=== PATIENT | female | born 1945 | race Caucasian/White ===

== ENCOUNTER → 2022-07-14 10:33 | Outpatient (CLI) | payer MEDICARE, OTHER, SELFPAY ==
--- NOTE | 2022-07-15 01:50 | DI.NM.S_ITS ---
DATE OF SERVICE: 07/14/2022 PROCEDURE: Pharmacological perfusion study. INDICATIONS: Patient has extensive ST-elevation anterior wall OH in March,. Significant LAD disease which was not intervened as patient already completed infarction. 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 Perfusion study was scheduled to see any ischemia in the circumflex and OM territory. RADIOPHARMACEUTICAL: 25.7 millicurie technetium-99m Myoview IV was injected at stress and 12.8 millicurie technetium-99m Myoview IV was injected at rest. CARDIAC STRESS: The patient underwent IV Lexiscan perfusion study under the supervision of an attending staff using standard intravenous Lexiscan as per protocol. Baseline rhythm sinus with QS complexes in V1 to V3 and up to [address]- elevation in anterior leads. Those changes were seen in the EKG of March, as well. During Lexiscan, there was slight and more pronounced ST elevation. No significant arrhythmias. The patient had slight shortness of breath and flushing. No chest pain. Resting blood pressure 138/72. Remained hemodynamically stable. RAW DATA: There is increased subdiaphragmatic activity. GATED STUDY: Resting LV ejection fraction 32% with hypokinetic mid to distal anterior wall. Cannot rule out small apical aneurysm. Resting end-diastolic 195 mL suggestive of dilated LV. TID ratio 1.03, which is within normal limits. Lung/heart ratio 0.30, which is within normal limits. Calculated stress LV ejection fraction is not reliable. MYOCARDIAL PERFUSION SCAN: There is no stress prone images. Stress supine and resting supine images were compared to each other. There appears to be predominantly fixed, large size, severely decreased perfusion of the entire mid to distal anterior wall extending into the entire apex, mid to distal anteroseptum, as well as distal inferior septum consistent with extensive infarction involving the mid LAD. There is no reversible ischemia in the circumflex territory or overall reversible ischemia. In fact, rest study is worse than stress study. Summed rest score 26 and summed stress score 17. Overall high-risk study. Nona [facility]anc - [place]/jaki/angelo doc#: [id number]/job#: [id number] dd: 07/14/2022 17:30:00 dt: 07/15/2022 01:40:00 DICTATING MD/COPIES TO: Marina Kahn MD; Slava Decker MD COPIES MNE: KARISSA;
== END ==
PROVIDERS: PCP Family Medicine; Referring Provider Internal Medicine Cardiovascular Disease; Visit Provider Internal Medicine Cardiovascular Disease
DX: I25.2 Old myocardial infarction (principal); I25.10 Atherosclerotic heart disease of native coronary artery without angina pectoris; I50.20 Unspecified systolic (congestive) heart failure; R94.31 Abnormal electrocardiogram [ECG] [EKG]; Z87.81 Personal history of (healed) traumatic fracture
CPT/HCPCS: 78452; 93017; A9502; J2785